=== PATIENT | male | born 1980 | race Two or more races ===

== ENCOUNTER 2019-08-26 15:40 | Emergency (ER) | payer SELFPAY ==
[~2019-08-26] VITALS: Ht 167.6 cm; Wt 74.8 kg
[2019-08-26 17:10] VITALS: BP 144/90
[2019-08-26] MEDS ORDERED: KETOROLAC TROMETH 60MG/2ML VIAL IM ONE (17:45)
== END 2019-08-26 18:18 | disposition home or self-care (01) ==
LOC: EDBD 15:40 → ER 15:40
DX: S39.012A Strain of muscle, fascia and tendon of lower back, initial encounter (principal); G89.29 Other chronic pain; X50.0XXA Overexertion from strenuous movement or load, initial encounter; Y93.89 Activity, other specified; Y92.89 Other specified places as the place of occurrence of the external cause; Y99.8 Other external cause status
CPT/HCPCS: 96372; 99283; J1885